=== PATIENT | female | born 1995 | race Two or more races ===

== ENCOUNTER 2019-04-08 08:59 | Emergency (ER) | payer SELFPAY ==
[2019-04-08] MEDS ORDERED: CIPROFLOXACIN HCL/DEXAMETH OTIC DROP 7.5 ML AU ONE (09:35)
--- NOTE | 2019-04-08 09:35 | ER Document Report ---
ED General - General Chief Complaint: Ear Pain Stated Complaint: EAR PAIN Time Seen by Provider: 04/08/19 09:11 Notes: Patient is a 23-year-old female who presents emergency department with a chief complaint of bilateral ear pain. Patient states that her pain started 4 days ago. Patient states that the left one hurts more than the right. Patient admits to having a fever today. States that it is hard to hear out of both ears. Denies any past medical history. TRAVEL OUTSIDE OF THE [place] IN LAST 30 DAYS: No - Related Data Allergies/Adverse Reactions: No Known Allergies Allergy (Unverified 04/08/19 09:05) Past Medical History - General Information source: Patient - Social History Smoking Status: Never Smoker Chew tobacco use (# tins/day): No Frequency of alcohol use: None Drug Abuse: None Family History: Reviewed & Not Pertinent Patient has suicidal ideation: No Patient has homicidal ideation: No Review of Systems - Review of Systems Notes: REVIEW OF SYSTEMS: CONSTITUTIONAL : See HPI. EENT: See HPI. CARDIOVASCULAR: Denies chest pain. RESPIRATORY: Denies shortness of breath, cough, congestion, difficulty breathing, or wheezing. GASTROINTESTINAL: Denies nausea, vomiting, and diarrhea. Denies abdominal pain. Denies constipation. GENITOURINARY: Denies difficulty urinating, burning, blood in urine, urgency or frequency. MUSCULOSKELETAL: Denies neck and back pain. Denies joint pain or swelling. SKIN: Denies rash, itchiness, or lesions HEMATOLOGIC : Denies easy bruising or bleeding. LYMPHATIC: Denies swollen, painful, enlarged glands. NEUROLOGICAL: Denies no numbness or tingling denies weakness. Denies headache. Denies altered mental status. Denies alteration in speech. PSYCHIATRIC: Denies stress, anxiety, alteration in sleep patterns, or depression. All other systems reviewed and negative. Physical Exam - Vital signs Vitals: Temp Pulse Resp BP Pulse Ox 99.1 F 83 16 145/84 H 98 04/08/19 09:03 04/08/19 09:03 04/08/19 09:03 04/08/19 09:03 04/08/19 09:03 - Notes Notes: PHYSICAL EXAMINATION: GENERAL: Appears well, healthy, well-nourished, no acute distress. HEAD: Normocephalic, atraumatic. EYES: PERRL, conjunctiva normal, all extraocular movements intact, sclera nonicteric ENT: Moist mucous membranes. Purulent drainage to bilateral ears. Tenderness to the left mastoid process. NECK: Supple, no noticeable swelling, redness, rash. Normal range of motion. LUNGS: Equal breath sounds bilaterally and clear to auscultation. No wheezes rales or rhonchi. CARDIOVASCULAR: S1-S2, regular rate, regular rhythm. Radial pulses 2+, normal. ABDOMEN: Normoactive bowel sounds. Soft, nontender, no guarding, no rebound tenderness, and no masses palpated. EXTREMITIES: Normal strength and range of motion, no pitting or edema. No cyanosis. NEUROLOGICAL: Moves all extremities upon command. Strength 5/5 in all extremities. PSYCH: Normal mood, normal affect. SKIN: Warm, dry. No rash, lesions, ulcerations noted. Normal skin turgor. Course - Re-evaluation Re-evalutation: 04/08/19 09:35 Patient has tenderness to her mastoid process and purulent drainage from bilateral ears. She will be started on Ciprodex drops and be sent for a CT of the facial bones to rule out mastoiditis. 04/08/19 11:17 At this time, no mastoiditis is noted on the CT. Patient has a leukocytosis of 16,900. Chemistries unremarkable. I will place her on Augmentin to cover gram- positive and gram-negative bacteria. Patient will follow-up with a primary care provider in [place] since she will be returning to [place] then. Follow-up precautions were given. Verbal discharge instructions were given to the patient. They verbalized understanding. They are stable for discharge. - Vital Signs Vital signs: Temp Pulse Resp BP Pulse Ox 98.6 F 76 16 112/58 L 98 04/08/19 11:25 04/08/19 11:25 04/08/19 11:25 04/08/19 11:25 04/08/19 11:25 - Laboratory Result Diagrams: 04/08/19 09:40 04/08/19 09:40 Laboratory results interpreted by me: 04/08/19 04/08/19 09:40 09:40 WBC 16.9 H RDW 15.1 H Lymph % (Auto) 11.6 L Absolute Neuts (auto) 13.5 H Seg Neutrophils % 80.2 H BUN 5 L Discharge - Discharge Clinical Impression: Otitis media Qualifiers: Otitis media type: unspecified Chronicity: acute Qualified Code(s): H66.90 - Otitis media, unspecified, unspecified ear Otitis externa Qualifiers: Otitis externa type: diffuse Chronicity: acute Laterality: bilateral Qualified Code(s): H60.313 - Diffuse otitis externa, bilateral Condition: Stable Disposition: HOME, SELF-CARE Instructions: Use of Ear Drops ([facility]), Otitis Externa ([facility]) Additional Instructions: You were seen today for ear pain and have an acute ear infection. Please take the antibiotic that has been prescribed until it is completed even if you are feeling better before you have finished all the antibiotics. For your pain: Take ibuprofen 600 mg and acetaminophen 1000 mg every 6 hours together as needed for pain. Return if you have worsening of your pain, loss of hearing in the affected ear, worsening facial pain, headaches, pass out, or any other symptoms that are worrisome to you. You also have an outer ear infection. You are being sent home with Ciprodex drops. Place 4 drops to both ears twice a day for 7 days. Please follow-up with a doctor when you return back to [place]. Prescriptions: Amox Tr/Potassium Clavulanate [Augmentin 875-125 Tablet] 1 tab PO BID 10 Days #20 tablet
[2019-04-08 09:59] LABS: ABSOLUTE MONOCYTES (AUTO) 1.3 10^3/uL (0.1-1.4); ABSOLUTE NEUT (AUTO) 13.5 10^3/uL (1.7-8.2); BASOPHILS % (AUTO) 0.2 % (0-2); EOSINOPHILS % (AUTO) 0.2 % (0-6); HEMATOCRIT 38.8 % (36.0-47.0); LYMPHOCYTES % (AUTO) 11.6 % (13-45); MEAN CORPUSCULAR HGB CONC 33.5 g/dL (32.0-36.0); MEAN CORPUSCULAR VOLUME 87 fl (80-97); MONOCYTES % (AUTO) 7.8 % (3-13); PLATELET COUNT 198 10^3/uL (150-450); RED BLOOD COUNT 4.49 10^6/uL (3.72-5.28); RED CELL DISTRIBUTION WIDTH 15.1 % (11.5-14.0); SEGMENTED NEUTROPHILS % (AUTO) 80.2 % (42-78); TOTAL CELLS COUNTED % (AUTO) 100 %; WHITE BLOOD COUNT 16.9 10^3/uL (4.0-10.5)
[2019-04-08 10:23] LABS: ANION GAP 13 (5-19); BLOOD UREA NITROGEN 5 mg/dL (7-20); CALCIUM 9.4 mg/dL (8.4-10.2); CARBON DIOXIDE 22 mmol/L (22-30); CHLORIDE 105 mmol/L (98-107); GLUCOSE 104 mg/dL (75-110)
[2019-04-08] MEDS ORDERED: KETOROLAC TROMETHAMINE INJ/PF 30 MG/1 ML SDV IV ONE (10:23)
--- NOTE | 2019-04-08 10:45 | RADIOLOGY REPORT (SQ) ---
EXAM DESCRIPTION: CT ORBIT/SELLA WITHOUT COMPLETED DATE/TIME: 04/08/2019 10:21 am REASON FOR STUDY: IACs; eval mastoiditis? B ear pain, mostly on left COMPARISON: None. TECHNIQUE: Noncontrasted images through the orbits windowed for bone and soft tissue. Additional co kristan and sagittal reconstructed images reviewed. All images stored on PACS. All CT scanners at this facility use dose modulation, iterative reconstruction, and/or weight based d osing when appropriate to reduce radiation dose to as low as reasonably achievable (ALARA). [facility]: Dose Right [facility]: CareDose [facility]: Dose Right [facility]: Teradose 4D [facility]: [employer] RADIATION DOSE: CT Rad equipment meets quality standard of care and radiation dose reduction techniq ues were employed. CTDIvol: 60.6 mGy. DLP: 606 mGy-cm. mGy. LIMITATIONS: None. FINDINGS: FACIAL BONES: No fracture or bone lesion. MIDDLE AND INNER EARS: Minimal mucosal thickening of the middle ears bilaterally. No fluid opacific ation. Normal bony appearance of the inner ears. EXTERNAL EARS: Soft tissue thickening of the external auditory canals bilaterally, which appear occl uded. MASTOID AIR CELLS: No significant fluid opacification of the mastoid air cells. No bony erosion or periosteal reaction to suggest mastoiditis. PARANASAL SINUSES: Clear. No significant mucosal thickening, mass or fluid. No nasal polyps. Maxilla ry sinus outlets are patent. SOFT TISSUES: No mass or edema. INFERIOR BRAIN: Limited view. No acute findings. OTHER: No other significant finding. IMPRESSION: 1. No significant fluid opacification of the mastoid air cells. No bony erosion or per iosteal reaction to suggest mastoiditis. Minimal mucosal thickening of the middle ears bilaterally w ithout fluid opacification. 2. Soft tissue thickening of the external auditory canals bilaterally, which appear occluded. Correl ate with speculum exam. TECHNICAL DOCUMENTATION: JOB ID: [id number] Quality ID # [id number]: Final reports with documentation of one or more dose reduction techniques (e.g., Au tomated exposure control, adjustment of the mA and/or kV according to patient size, use of iterative reconstruction technique) 2010 [employer]- All Rights Reserved Reading location - IP/workstation name: [email or web address]
[2019-04-08 11:31] VITALS: BP 112/58
== END 2019-04-08 11:29 | disposition home or self-care (01) ==
LOC: ER 08:59
DX: H60.313 Diffuse otitis externa, bilateral (principal); H66.90 Otitis media, unspecified, unspecified ear; H92.03 Otalgia, bilateral
CPT/HCPCS: 99283; 96374; 36415; 87040; 84703; 85025; 80048; 70480; J1885; J3490

== ENCOUNTER 2019-10-08 18:57 | Emergency (ER) | payer SELFPAY ==
--- NOTE | 2019-10-08 19:33 | ER Document Report ---
ED Extremity Problem, Lower - General Chief Complaint: Ankle Pain Stated Complaint: FALL,ANKLE PAIN Time Seen by Provider: 10/08/19 19:27 Primary Care Provider: SHIRLEY MUSTAFA JR, DO [ACTIVE PROVISIONAL STAFF] - Follow up as needed Mode of Arrival: Wheelchair Information source: Patient Notes: 24-year-old female presents to ED for complaint of pain and swelling to the left ankle. She states she was rollerblading at home about 630 when she fell twisting her ankle. Her ankle is swollen and bruised. She is alert oriented respirations regular nonlabored speaking in full sentences. TRAVEL OUTSIDE OF THE [place] IN LAST 30 DAYS: No - HPI Patient complains to provider of: Injury, Pain, Swelling Location: Ankle Occurred: Just prior to arrival - Left Where: Home, Outdoors Onset/Duration: Gradual Quality of pain: Achy, Throbbing Severity: Moderate Pain Level: 3 Context: Twisted, Wearing shoes Recent injury: Yes Associated symptoms: Painful ambulation Exacerbated by: Hanging down, Movement, Walking Relieved by: Elevation, Ice, Rest - Related Data Allergies/Adverse Reactions: No Known Allergies Allergy (Verified 10/08/19 19:18) Past Medical History - General Information source: Patient - Social History Smoking Status: Never Smoker Chew tobacco use (# tins/day): No Frequency of alcohol use: None Drug Abuse: None Family History: Reviewed & Not Pertinent Patient has homicidal ideation: No - Past Medical History Cardiac Medical History: Reports: None Pulmonary Medical History: Reports: None EENT Medical History: Reports: None Neurological Medical History: Reports: None Endocrine Medical History: Reports: None Renal/ Medical History: Reports: None Malignancy Medical History: Reports: None GI Medical History: Reports: None Musculoskeletal Medical History: Reports None Skin Medical History: Reports None Psychiatric Medical History: Reports: None Traumatic Medical History: Reports: None Infectious Medical History: Reports: None Surgical Hx: Negative Past Surgical History: Reports: None - Immunizations Immunizations up to date: Yes Review of Systems - Review of Systems Constitutional: No symptoms reported EENT: No symptoms reported Cardiovascular: No symptoms reported Respiratory: No symptoms reported Gastrointestinal: No symptoms reported Genitourinary: No symptoms reported Female Genitourinary: No symptoms reported Musculoskeletal: Ankle swelling - Left ankle pain and swelling Skin: No symptoms reported Hematologic/Lymphatic: No symptoms reported Neurological/Psychological: No symptoms reported -: Yes All other systems reviewed and negative Physical Exam - Vital signs Vitals: Temp Pulse Resp BP Pulse Ox 98.2 F 90 14 116/60 100 10/08/19 19:02 10/08/19 19:02 10/08/19 19:02 10/08/19 19:02 10/08/19 19:02 Interpretation: Normal - General General appearance: Appears well, Alert - HEENT Head: Normocephalic, Atraumatic Eyes: Normal Pupils: PERRL - Respiratory Respiratory status: No respiratory distress Chest status: Nontender Breath sounds: Normal Chest palpation: Normal - Cardiovascular Rhythm: Regular Heart sounds: Normal auscultation Murmur: No - Abdominal Inspection: Normal Distension: No distension Bowel sounds: Normal Tenderness: Nontender Organomegaly: No organomegaly - Back Back: Normal, Nontender - Extremities General upper extremity: Normal inspection, Nontender, Normal color, Normal ROM, Normal temperature General lower extremity: Normal temperature. No: Jenise's sign Hip: Normal, Nontender. No: Tender Thigh: Normal, Nontender. No: Tender Knee: Normal, Nontender. No: Tender Calf: Normal, Nontender, Other - Patient had no tenderness no swelling above the ankle no tenderness to palpation at the knee. No: Tender Ankle: Tender, Ecchymosis, Edema, Limited ROM - Very painful with any motion to the ankle, Unable to bear weight - Neurological Neuro grossly intact: Yes Cognition: Normal Orientation: AAOx4 [place] Coma Scale Eye Opening: Spontaneous [place] Coma Scale Verbal: Oriented [place] Coma Scale Motor: Obeys Commands [place] Coma Scale Total: 15 Speech: Normal Motor strength normal: LUE, RUE, LLE, RLE Sensory: Normal - Psychological Associated symptoms: Normal affect, Normal mood - Skin Skin Temperature: Warm Skin Moisture: Dry Skin Color: Normal Course - Re-evaluation Re-evalutation: 10/08/19 20:[address] Phan. He recommended a posterior short leg and stirrup splint with crutches. Patient was instructed no weightbearing due to the instability of this fracture. Patient verbalized understanding and agreement with treatment plan. Patient was given a Captiva dispense pack and took 1 Captiva while in the emergency room and then was given a prescription due to the fracture. He has been instructed to follow-up with orthopedics by telephone tomorrow to schedule follow-up. The instructions for no weightbearing will verbalized many times to ensure that she understood the did not know putting any weight on this foot. Patient did verbalize understanding and she was discharged home. - Vital Signs Vital signs: Temp Pulse Resp BP Pulse Ox 98.4 F 72 16 117/73 100 10/08/19 20:16 10/08/19 20:16 10/08/19 20:16 10/08/19 20:16 10/08/19 20:16 - Diagnostic Test Radiology reviewed: Image reviewed, Reports reviewed Procedures - Immobilization Left Ankle Time completed: 20:12 Pre-Proc Neuro Vasc Exam: Normal Immobilizer type: Ankle stirrup, Crutches - Nonweightbearing, Short Leg Posterior Performed by: PCT Post-Proc Neuro Vasc Exam: Normal Alignment checked and good: Yes Discharge - Discharge Clinical Impression: Distal fibula fracture spiral left Condition: Stable Disposition: HOME, SELF-CARE Additional Instructions: Fracture of Distal Fibula You have a fracture at the end of the fibula, the smaller bone in the lower leg. You have a spiral fracture of the distal fibula which is a unstable fracture. You will be placed in a splint and you will have to follow-up with orthopedics by telephone tomorrow to schedule a follow-up visit. They will determine whether you need surgery or what further treatment will need to be done to this fracture. Initially, the extremity should be kept elevated, with ice packs applied frequently. You are not allowed to bear any weight on this foot until you have seen orthopedics and they tell you what to do. This foot needs to stay elevated. Healing of this fracture takes about four to eight weeks. Younger patients heal more quickly. An X-ray is usually required during healing to check for complications and to assess healing. Call the doctor or return at once if there is severe swelling, increasing pain, or numbness in the foot. Splint Pending Casting Your injury can't be casted until the swelling has subsided. Therefore, a temporary splint has been placed to protect the injury. Full use of an injured area is not possible in a splint. You should follow the doctor's instructions concerning rest, ice, and elevation of the injury. Never do anything which causes pain under the splint. Keep the splint on ALL THE TIME until you return for casting. If there is unexpected severe pain, or numbness, discoloration, or swelling beyond the splint, you should return at once. USE OF CRUTCHES: The doctor has recommended that you not bear weight at this time. You will need to use crutches. Adjust the crutches so the tops come to about two inches under the armpit while you are standing upright. Use your hands -- not your armpits -- to support your weight. To get into a chair, support yourself with one crutch on the injured side. Hold the chair with the other hand, then lower yourself while putting all your weight on the good leg. Going up stairs is `good leg up, step up, then bring up crutches and bad leg.' Down stairs is `bad leg and crutches down, then bring good leg down.' If you develop numbness or swelling in an arm or hand, you are using the crutches incorrectly. Return if you are having any problems with the crutches. ICE & ELEVATION: Apply ice packs frequently against the painful area. Many different schedules are recommended, such as "20 minutes on, 20 minutes off" or "one hour ice, two hours rest." If you need to work, you may need to go longer between ice treatments. You should plan to have the area ice packed AT LEAST one-fourth of the time. The ice should be applied over the wrap, tape, or splint, or over a layer of cloth -- not directly against the skin. Some ice bags have a built-in cloth and can be put directly on the skin. Your injured part should be elevated as much as possible over the next 48 hours. Try to keep the injury above the level of the heart. Avoid use of the injured area. Elevation and rest will decrease the swelling. USE OF [id number] IBUPROFEN: Ibuprofen (Advil, Nuprin, Medipren, Motrin IB) is a medication for fever and pain control. In addition, it has anti- inflammatory effects which may be beneficial, especially in the treatment of injuries. It's best to take ibuprofen with food. Persons with ulcer disease or allergy to aspirin should notify their physician of this before taking ibuprofen. Ibuprofen can be given every four to six hours, for a total of four doses daily. Age Pain or fever dose Antiinflammatory dose 6-8 yr 200 mg (1 tab) 200 mg (1 tab) 9-11 yr 200 mg (1 tab) 200-400 mg (1-2 tab) 11-14 yr 200-400 mg (1-2 tab) 400 mg (2 tab) 15-adult 400 mg (2 tab) 600 mg (3 tab) ORAL NARCOTIC MEDICATION: You have been given a prescription for pain control. This medication is a narcotic. It's best taken with food, as nausea can result if taken on an empty stomach. Don't operate machinery or drive within six hours of taking this medication. Do not combine this medicine with alcohol, or with any medication which can cause sedation (such as cold tablets or sleeping pills) unless you get permission from the physician. Narcotics tend to cause constipation. If possible, drink plenty of fluids and eat a diet high in fiber and fruits. Please be aware that prescription narcotics also have the potential for abuse. People become addicted to these medications because of the general sense of wellbeing that they induce. This feeling along with a significant reduction in tension, anxiety, and aggression provides a stimulating seductive quality to these drugs. Once your pain is under control, we encourage you to discard your unused narcotics. FOLLOW-UP CARE: If you have been referred to a physician for follow-up care, call the physicians office for an appointment as you were instructed or within the next two days. If you experience worsening or a significant change in your symptoms, notify the physician immediately or return to the Emergency Department at any time for re-evaluation. Prescriptions: Hydrocodone/Acetaminophen [Captiva 5-325 mg Tablet] 1 tab PO Q6HP PRN #10 tablet PRN Reason: Referrals: SHIRLEY MUSTAFA JR, DO [ACTIVE PROVISIONAL STAFF] - Follow up as needed
[2019-10-08] MEDS ORDERED: HYDROCODONE/ACETAMINOPHEN 5-325 MG (6 TAB/ER DISP) PO PRN (19:41)
[2019-10-08 20:25] VITALS: BP 117/73
--- NOTE | 2019-10-08 20:29 | RADIOLOGY REPORT (SQ) ---
EXAM DESCRIPTION: XR ANKLE 3 OR MORE VIEWS COMPLETED DATE/TME: 10/08/2019 19:27 CLINICAL HISTORY: 24 years Female ,Pain injury swelling left ankle COMPARISON: None. TECHNIQUE: Left ankle, 3 view FINDINGS: Soft tissue swelling around the ankle. There is an obliquely oriented mildly displaced fracture of the distal fibula. There appears to be some widening of the ankle mortise medially suggesting ligamentous injury. Soft tissue swelling and small joint effusion. IMPRESSION: Obliquely oriented and mildly displaced fracture of the distal fibula with associated soft tissue swelling Widening of the medial aspect of the ankle mortise suggesting ligamentous injury
== END 2019-10-08 20:20 | disposition home or self-care (01) ==
LOC: ER 18:57
DX: S82.832A Other fracture of upper and lower end of left fibula, initial encounter for closed fracture (principal); M25.572 Pain in left ankle and joints of left foot; M25.472 Effusion, left ankle; V00.121A Fall from non-in-line roller-skates, initial encounter; Y93.51 Activity, roller skating (inline) and skateboarding; Y92.009 Unspecified place in unspecified non-institutional (private) residence as the place of occurrence of the external cause
CPT/HCPCS: 99283

== ENCOUNTER 2019-10-14 10:51 | Day surgery (SDC) | payer SELFPAY ==
[2019-10-13 09:54] LABS: ABSOLUTE EOSINOPHILS # (AUTO) 0.1 10^3/uL (0.0-0.6); ABSOLUTE LYMPHOCYTES (AUTO) 2.5 10^3/uL (0.5-4.7); ABSOLUTE MONOCYTES (AUTO) 0.4 10^3/uL (0.1-1.4); BASOPHILS % (AUTO) 0.6 % (0-2); EOSINOPHILS % (AUTO) 1.5 % (0-6); HEMATOCRIT 36.3 % (36.0-47.0); HEMOGLOBIN 12.4 g/dL (12.0-15.5); LYMPHOCYTES % (AUTO) 30.7 % (13-45); MEAN CORPUSCULAR HEMOGLOBIN 29.8 pg (27.0-33.4); MEAN CORPUSCULAR HGB CONC 34.3 g/dL (32.0-36.0); MEAN CORPUSCULAR VOLUME 87 fl (80-97); MONOCYTES % (AUTO) 5.6 % (3-13); PLATELET COUNT 212 10^3/uL (150-450); RED BLOOD COUNT 4.17 10^6/uL (3.72-5.28); SEGMENTED NEUTROPHILS % (AUTO) 61.6 % (42-78); TOTAL CELLS COUNTED % (AUTO) 100 %; WHITE BLOOD COUNT 8.1 10^3/uL (4.0-10.5)
[~2019-10-14 10:51] MED LIST: CEFAZOLIN SODIUM 2 GM in DEXTROSE 5%-WATER 100 ML IV PRN; LACTATED RINGERS 1000 ML IV PRN
[2019-10-14] MEDS ORDERED: ACETAMINOPHEN 325 MG TABLET ONE (12:18)
[2019-10-14] MEDS ORDERED: OXYCODONE HCL SR 10 MG TABLET PO ONE (12:19)
[2019-10-14] MEDS ORDERED: FENTANYL CITRATE INJ/PF 100 MCG/2 ML AMPUL ONE ×2 (12:48→13:57)
[2019-10-14] MEDS ORDERED: MIDAZOLAM 2 MG/2 ML INJ ONE ×2 (12:48→13:57)
[2019-10-14] MEDS ORDERED: MIDAZOLAM 2 MG/2 ML INJ IV ONE (13:45)
[2019-10-14] MEDS ORDERED: FENTANYL CITRATE INJ/PF 100 MCG/2 ML AMPUL IV ONE (13:45)
[2019-10-14] MEDS ORDERED: ONDANSETRON HCL INJ/PF 4 MG/2 ML SDV ONE ×2 (13:57→17:07)
[2019-10-14] MEDS ORDERED: DEXAMETHASONE SOD PHOSPHATE INJ 4 MG/1 ML VIAL ONE (13:57)
[2019-10-14] MEDS ORDERED: LIDOCAINE 2% INJ-PF (20 MG/ML) 10 ML AMPUL ONE (13:57)
[2019-10-14] MEDS ORDERED: PROPOFOL INJ 200 MG/20 ML VIAL IV ONE (13:58)
[2019-10-14] MEDS ORDERED: LIDOCAINE 1% INJ-PF (10 MG/ML) 30 ML SDV ONE (14:02)
[2019-10-14] MEDS ORDERED: BUPIVACAINE HCL 0.5 % INJ/PF 30 ML SDV ONE (14:02)
[2019-10-14] MEDS ORDERED: MEPERIDINE HCL/PF INJ 25 MG/1 ML DISP.SYRIN IV PRN (14:43)
[2019-10-14] MEDS ORDERED: OXYCODONE-ACETAMINOPHEN 5-325 MG TABLET PO PRN ×2 (14:43)
[2019-10-14] MEDS ORDERED: FENTANYL CITRATE INJ/PF 100 MCG/2 ML AMPUL IV PRN ×3 (14:43)
[2019-10-14] MEDS ORDERED: DIPHENHYDRAMINE HCL 50 MG/ML VIAL IV PRN (14:43)
[2019-10-14] MEDS ORDERED: ONDANSETRON HCL INJ/PF 4 MG/2 ML SDV IV PRN (14:43)
[2019-10-14] MEDS ORDERED: PROMETHAZINE HCL INJ 25 MG/1 ML VIAL IV PRN ×2 (14:43)
[2019-10-14] MEDS ORDERED: EPHEDRINE SULFATE INJ 50 MG/1 ML AMPULE ONE (14:59)
--- NOTE | 2019-10-14 16:12 | Operative Report ---
Operative Report DATE OF SURGERY: 10/14/19 PREOPERATIVE DIAGNOSIS: Left bimalleolar equivalent ankle fracture. POSTOPERATIVE DIAGNOSIS: Left bimalleolar equivalent ankle fracture with syndesmotic injury. OPERATION: Left ankle open reduction internal fixation with syndesmotic fixation SURGEON: SHIRLEY MUSTAFA JR ANESTHESIA: Spinal COMPLICATIONS: None ESTIMATED BLOOD LOSS: 15 cc PROCEDURE: My ankle fracture they were brought to the operating suite and placed under spinal anesthesia. The splint was removed and skin was confirmed to be intact and was healthy for operative treatment. They were prepped and draped in standard sterile fashion. They were provided with 2 g of Ancef pre-operatively. After an appropriate timeout the limb was exsanguinated with Esmarch and tourniquet was inflated followed by incision to the lateral malleolus. Careful dissection was performed until the fracture was exposed. Due to the findings of long oblique fibula fracture technique performed was lag screw fixation with neutralization plate. We were able to place 2 lag screws across the fracture site and achieve a anatomic keyed in reduction. This was all performed with the assistance of fluoroscopy. After excellent reduction and plate application all screws were tightened appropriately. Following this, an external rotation stress test was performed and found the syndesmosis to be injured with increased syndesmotic clear space as well as medial widening. Due to this we placed 1 syndesmotic screws. Final fluoroscopy was then taken. The wounds were copiously irrigated with sterile saline solution. 0 Vicryl was utilized to draw the deep fascia over the lateral plate. Following this 3-0 Monocryl was utilized for the subcutaneous layer followed by a running 3-0 nylon in the skin. Xeroform was placed over the wounds followed by 4 x 4's soft roll plaster posterior U type splint and Jonnathan wrap. The patient tolerated the procedure well and was transferred to the PACU in stable condition.
--- NOTE | 2019-10-14 16:16 | RADIOLOGY REPORT (SQ) ---
EXAM DESCRIPTION: ANKLE LEFT COMPLETE; NO CHG FLUORO IMAGES COMPLETED DATE/TIME: 10/14/2019 4:01 pm REASON FOR STUDY: ORIF LT ANKLE S82.842A DISPLACED BIMALLEOLAR FRACTURE OF LEFT LOWER LEG, I COMPARISON: AP, lateral, oblique views of the left ankle from 10/08/2019. FLUOROSCOPY TIME: 0.6 minutes. 6 images submitted to PACS. TECHNIQUE: Fluoroscopic guidance was used intraoperatively during an open reduction internal fixatio n of an obliquely oriented and mildly displaced fracture of the distal fibula. LIMITATIONS: None. FINDINGS: The fracture has been transfixed with placement of a dynamic compression plate, several co rtical screws and a single syndesmotic screw. IMPRESSION: IMAGE(S) OBTAINED DURING PROCEDURE. COMMENT: Quality ID [id number]: Final reports for procedures using fluoroscopy that document radiation exp osure indices, or exposure time and number of fluorographic images (if radiation exposure indices are not available) Please consult full operative report of the attending physician for description of the procedure. TECHNICAL DOCUMENTATION: JOB ID: [id number] 2010 [employer]- All Rights Reserved Reading location - IP/workstation name: [email or web address]
--- NOTE | 2019-10-14 16:16 | RADIOLOGY REPORT (SQ) ---
EXAM DESCRIPTION: ANKLE LEFT COMPLETE; NO CHG FLUORO IMAGES COMPLETED DATE/TIME: 10/14/2019 4:01 pm REASON FOR STUDY: ORIF LT ANKLE S82.842A DISPLACED BIMALLEOLAR FRACTURE OF LEFT LOWER LEG, I COMPARISON: AP, lateral, oblique views of the left ankle from 10/08/2019. FLUOROSCOPY TIME: 0.6 minutes. 6 images submitted to PACS. TECHNIQUE: Fluoroscopic guidance was used intraoperatively during an open reduction internal fixatio n of an obliquely oriented and mildly displaced fracture of the distal fibula. LIMITATIONS: None. FINDINGS: The fracture has been transfixed with placement of a dynamic compression plate, several co rtical screws and a single syndesmotic screw. IMPRESSION: IMAGE(S) OBTAINED DURING PROCEDURE. COMMENT: Quality ID [id number]: Final reports for procedures using fluoroscopy that document radiation exp osure indices, or exposure time and number of fluorographic images (if radiation exposure indices are not available) Please consult full operative report of the attending physician for description of the procedure. TECHNICAL DOCUMENTATION: JOB ID: [id number] 2010 [employer]- All Rights Reserved Reading location - IP/workstation name: [email or web address]
[2019-10-14 18:05] VITALS: BP 139/80
== END 2019-10-14 17:37 | disposition home or self-care (01) ==
LOC: OROUT 10:51
PROVIDERS: ATTEND Orthopaedic Surgery
DX: S82.842A Displaced bimalleolar fracture of left lower leg, initial encounter for closed fracture (principal); X58.XXXA Exposure to other specified factors, initial encounter
CPT/HCPCS: 27814; 36415; 85025; 81025; 73610; C1713 ×8; J2250; J3490 ×3; J0690; J1100; J3010; J2405; J7060; J2704; 01480

== ENCOUNTER 2019-10-14 20:58 | Emergency (ER) | payer SELFPAY ==
--- NOTE | 2019-10-14 21:24 | ER Document Report ---
ED Medical Screen (RME) - General Chief Complaint: Urinary Problem Stated Complaint: URINARY COMPLAINTS Time Seen by Provider: 10/14/19 21:21 Mode of Arrival: Wheelchair Information source: Patient Notes: 24-year-old female presents emergency department with complaints that she is unable to void. Reports she had surgery today by Dr. Valentino on her ankle. She reports she did not void prior to being discharged from the PACU. Patient reports she was instructed to return in 6 hours if she has not voided. She reports that has not been 6 hours but she is really uncomfortable and still unable to void. She denies other symptoms such as fever vomiting diarrhea. I have greeted and performed a rapid initial assessment of this patient. A comprehensive ED assessment and evaluation of the patient, analysis of test results and completion of the medical decision making process will be conducted by additional ED providers. TRAVEL OUTSIDE OF THE [place] IN LAST 30 DAYS: No - Related Data Allergies/Adverse Reactions: No Known Allergies Allergy (Verified 10/14/19 11:01) Past Medical History - Past Medical History Cardiac Medical History: Denies: Hx Coronary Artery Disease, Hx Heart Attack, Hx Hypertension Pulmonary Medical History: Denies: Hx Asthma, Hx Bronchitis, Hx COPD, Hx Pneumonia Neurological Medical History: Denies: Hx Cerebrovascular Accident, Hx Seizures Musculoskeltal Medical History: Denies Hx Arthritis - Immunizations Immunizations up to date: Yes Hx Diphtheria, Pertussis, Tetanus Vaccination: Yes Physical Exam - Vital signs Vitals: Temp Pulse Resp BP Pulse Ox 98.0 F 93 18 143/78 H 98 10/14/19 21:02 10/14/19 21:02 10/14/19 21:02 10/14/19 21:02 10/14/19 21:02 Course - Vital Signs Vital signs: Temp Pulse Resp BP Pulse Ox 98.0 F 93 18 143/78 H 98 10/14/19 21:02 10/14/19 21:02 10/14/19 21:02 10/14/19 21:02 10/14/19 21:02
[2019-10-14 22:21] LABS: APPEARANCE,URINE CLEAR; BILIRUBIN,URINE NEGATIVE (NEGATIVE); COLOR,URINE YELLOW; GLUCOSE, URINE NEGATIVE (NEGATIVE); KETONES,URINE NEGATIVE (NEGATIVE); LEUKOCYTE ESTERASE,URINE NEGATIVE (NEGATIVE); NITRITE,URINE NEGATIVE (NEGATIVE); PROTEIN,URINE NEGATIVE (NEGATIVE); URINE SPECIFIC GRAVITY 1.015; UROBILINOGEN,URINE NEGATIVE mg/dL (<2.0)
--- NOTE | 2019-10-14 22:27 | ER Document Report ---
HPI - HPI Patient complains to provider of: unable to void Time Seen by Provider: 10/14/19 21:21 Onset: This evening Onset/Duration: Sudden Quality of pain: Pressure Pain Level: 4 Context: 24-year-old female presents emergency department with complaints that she is unable to void. Patient reports she broke her ankle while rollerblading last week. Reports she had surgery on her left ankle this afternoon Dr. Valentino and has not voided since then. She reports she was discharged without voiding. She was instructed to return to the emergency department if she is unable to void within 6 hours post discharge. She reports that would have been midnight. She reports she began feeling very uncomfortable so she came to the emergency department. She denies fever vomiting diarrhea. Associated Symptoms: None Exacerbated by: Denies Relieved by: Denies Similar symptoms previously: No Recently seen / treated by doctor: Yes - REPRODUCTIVE Reproductive: DENIES: : Past Medical History - General Information source: Patient Last Menstrual Period: 09/19/2019 - Social History Smoking Status: Never Smoker Chew tobacco use (# tins/day): No Frequency of alcohol use: None Drug Abuse: None Family History: Reviewed & Not Pertinent Patient has suicidal ideation: No Patient has homicidal ideation: No - Past Medical History Cardiac Medical History: Denies: Hx Coronary Artery Disease, Hx Heart Attack, Hx Hypertension Pulmonary Medical History: Denies: Hx Asthma, Hx Bronchitis, Hx COPD, Hx Pneumonia Neurological Medical History: Denies: Hx Cerebrovascular Accident, Hx Seizures Musculoskeletal Medical History: Denies Hx Arthritis Traumatic Medical History: Reports: Hx Fractures Past Surgical History: Reports: Hx Orthopedic Surgery - Immunizations Immunizations up to date: Yes Hx Diphtheria, Pertussis, Tetanus Vaccination: Yes Vertical Provider Document - CONSTITUTIONAL Agree With Documented VS: Yes Exam Limitations: No Limitations General Appearance: WD/WN, No Apparent Distress - INFECTION CONTROL TRAVEL OUTSIDE OF THE [place] IN LAST 30 DAYS: No - HEENT HEENT: Atraumatic, Normocephalic - NECK Neck: Supple - RESPIRATORY Respiratory: No Respiratory Distress - CARDIOVASCULAR Cardiovascular: Regular Rate - GI/ABDOMEN Gastrointestinal: Abdomen Soft - MUSCULOSKELETAL/EXTREMETIES Musculoskeletal/Extremeties: MAEW, FROM, Tender - left lower leg in splint - NEURO Level of Consciousness: Awake, Alert, Appropriate - DERM Integumentary: Warm, Dry Course - Re-evaluation Re-evalutation: 10/14/19 22:25 Straight cath was completed. Patient reports she feels much better after that. She was given p.o. fluids and instructed that she needed to void before she could be discharged. 10/14/19 23:33 UA unremarkable, after p.o. challenge patient was able to void. She was instructed on the importance of pushing fluids follow-up with primary care return to the ED for any concerns. She verbalized understanding to all instructions. Laboratory 10/14/19 21:59 Urine Color YELLOW Urine Appearance CLEAR Urine pH 7.0 Ur Specific [place] 1.015 Urine Protein NEGATIVE Urine Glucose (UA) NEGATIVE Urine Ketones NEGATIVE Urine Blood NEGATIVE Urine Nitrite NEGATIVE Urine Bilirubin NEGATIVE Urine Urobilinogen NEGATIVE Ur Leukocyte Esterase NEGATIVE Urine WBC (Auto) 1 Urine RBC (Auto) 1 U Hyaline Cast (Auto) 1 Squamous Epi Cells Auto 1 Urine Mucus (Auto) OCC Urine Ascorbic Acid NEGATIVE - Vital Signs Vital signs: Temp Pulse Resp BP Pulse Ox 98.0 F 93 18 143/78 H 98 10/14/19 21:21 10/14/19 21:02 10/14/19 21:02 10/14/19 21:02 10/14/19 21:02 Discharge - Discharge Clinical Impression: Postoperative urinary retention Condition: Stable Disposition: HOME, SELF-CARE Instructions: Urinary Retention ([facility]) Additional Instructions: *You have been evaluated for urinary retention *Follow up with Dr. Valentino as scheduled *Return to the emergency department if unable to void, concerns, needs Monitor your blood pressure. Your blood pressure was elevated today. This may be because you were anxious, in pain or because you need medication. It is important to follow up with your primary care provider for full evaluation. Forms: Elevated Blood Pressure
[2019-10-14 23:45] VITALS: BP 119/60
== END 2019-10-14 23:40 | disposition home or self-care (01) ==
LOC: ER 20:58
DX: R33.8 Other retention of urine (principal); Z98.890 Other specified postprocedural states
CPT/HCPCS: 51701; 81001; 99283

== ENCOUNTER 2020-05-14 15:35 | Emergency (ER) | payer SELFPAY ==
--- NOTE | 2020-05-14 15:57 | ER Document Report ---
ED Medical Screen (RME) - General Chief Complaint: Epigastric Pain Stated Complaint: EPIGASTRIC PAIN Time Seen by Provider: 05/14/20 15:54 Mode of Arrival: Ambulatory Information source: Patient Notes: 24-year-old female presents to ED for complaint of upper abdominal pain. She states she has a history of reflux but this is lasting longer and more painful than normal reflux. She states she is taking [id number] medications and does not seem to be getting any better. She denies any fevers. Denies any nausea or vomiting. She is alert oriented respirations regular nonlabored speak ing in full sentences. We will get blood and urine and get an upper abdominal ultrasound and she will be seen by another provider. I have greeted and performed a rapid initial assessment of this patient. A comprehensive ED assessment and evaluation of the patient, analysis of test results and completion of medical decision making process will be conducted by an additional ED providers. TRAVEL OUTSIDE OF THE [place] IN LAST 30 DAYS: No - Related Data Allergies/Adverse Reactions: No Known Allergies Allergy (Verified 10/14/19 11:01) Past Medical History - Past Medical History Cardiac Medical History: Denies: Hx Coronary Artery Disease, Hx Heart Attack, Hx Hypertension Pulmonary Medical History: Denies: Hx Asthma, Hx Bronchitis, Hx COPD, Hx Pneumonia Neurological Medical History: Denies: Hx Cerebrovascular Accident, Hx Seizures Musculoskeltal Medical History: Denies Hx Arthritis Traumatic Medical History: Reports: Hx Fractures Past Surgical History: Reports: Hx Orthopedic Surgery - Immunizations Immunizations up to date: Yes Hx Diphtheria, Pertussis, Tetanus Vaccination: Yes Physical Exam - Vital signs Vitals: Temp Pulse Resp BP Pulse Ox 98.4 F 89 16 138/88 H 98 05/14/20 15:44 05/14/20 15:44 05/14/20 15:44 05/14/20 15:44 05/14/20 15:44 Course - Vital Signs Vital signs: Temp Pulse Resp BP Pulse Ox 98.4 F 89 16 138/88 H 98 05/14/20 15:44 05/14/20 15:44 05/14/20 15:44 05/14/20 15:44 05/14/20 15:44
--- NOTE | 2020-05-14 17:07 | RADIOLOGY REPORT (SQ) ---
EXAM DESCRIPTION: U/S ABDOMEN LIMITED W/O DOP IMAGES COMPLETED DATE/TIME: 05/14/2020 1:53 pm REASON FOR STUDY: Upper abdominal pain COMPARISON: None. TECHNIQUE: Dynamic and static grayscale images acquired of the abdomen and recorded on PACS. Additio nal selected color Doppler and spectral images recorded. LIMITATIONS: Pancreatic tail is poorly visualized due to overlying structures. Portions of the hepa tic parenchyma are also poorly penetrated. FINDINGS: PANCREAS: Visualized portions are unremarkable. LIVER: Visualized portions appear normal. Portions of the hepatic parenchyma are poorly penetrated. No discrete liver lesion identified. LIVER VASCULATURE: Normal directional flow of the main portal vein and hepatic veins. GALLBLADDER: The gallbladder appears to be filled with stones with diffuse posterior acoustic shadowi ng. No significant wall thickening. ULTRASOUND-DETECTED BYRD'S SIGN: Negative. INTRAHEPATIC DUCTS AND COMMON DUCT: Common duct is at the upper limits of normal. No intrahepatic bi liary dilatation. INFERIOR VENA CAVA: Visualized portions are unremarkable. AORTA: No aneurysm. RIGHT KIDNEY: Normal size. Normal echogenicity. No solid or suspicious masses. No hydronephrosis. No calcifications. PERITONEAL AND RIGHT PLEURAL SPACE: No ascites or effusions. OTHER: No other significant findings. IMPRESSION: Stone filled gallbladder without significant wall thickening or adjacent fluid collectio ns. TECHNICAL DOCUMENTATION: JOB ID: [id number] 2010 [employer]- All Rights Reserved Reading location - IP/workstation name: [email or web address]
[2020-05-14 17:09] LABS: ABSOLUTE EOSINOPHILS # (AUTO) 0.1 10^3/uL (0.0-0.6); ABSOLUTE LYMPHOCYTES (AUTO) 2.3 10^3/uL (0.5-4.7); ABSOLUTE MONOCYTES (AUTO) 0.6 10^3/uL (0.1-1.4); ABSOLUTE NEUT (AUTO) 7.6 10^3/uL (1.7-8.2); BASOPHILS % (AUTO) 0.2 % (0-2); EOSINOPHILS % (AUTO) 0.7 % (0-6); HEMATOCRIT 40.2 % (36.0-47.0); HEMOGLOBIN 13.2 g/dL (12.0-15.5); LYMPHOCYTES % (AUTO) 21.5 % (13-45); MEAN CORPUSCULAR HEMOGLOBIN 29.3 pg (27.0-33.4); MEAN CORPUSCULAR HGB CONC 32.8 g/dL (32.0-36.0); MEAN CORPUSCULAR VOLUME 89 fl (80-97); MONOCYTES % (AUTO) 5.5 % (3-13); PLATELET COUNT 201 10^3/uL (150-450); RED CELL DISTRIBUTION WIDTH 14.5 % (11.5-14.0); SEGMENTED NEUTROPHILS % (AUTO) 72.1 % (42-78); TOTAL CELLS COUNTED % (AUTO) 100 %; WHITE BLOOD COUNT 10.5 10^3/uL (4.0-10.5)
[2020-05-14 17:32] LABS: ALBUMIN 4.3 g/dL (3.5-5.0); ALKALINE PHOSPHATASE 110 U/L (38-126); ANION GAP 8 (5-19); ASPARTATE AMINO TRANSFERASE 26 U/L (14-36); BILIRUBIN,DIRECT 0.1 mg/dL (0.0-0.4); BILIRUBIN,TOTAL 0.3 mg/dL (0.2-1.3); BLOOD UREA NITROGEN 15 mg/dL (7-20); CALCIUM 9.3 mg/dL (8.4-10.2); CARBON DIOXIDE 26 mmol/L (22-30); CHLORIDE 108 mmol/L (98-107); GLUCOSE 111 mg/dL (75-110); POTASSIUM 4.2 mmol/L (3.6-5.0); TOTAL PROTEIN 7.6 g/dL (6.3-8.2)
[2020-05-14 18:09] LABS: APPEARANCE,URINE SLIGHTLY-CLOUDY; BILIRUBIN,URINE NEGATIVE (NEGATIVE); COLOR,URINE YELLOW; GLUCOSE, URINE NEGATIVE (NEGATIVE); KETONES,URINE NEGATIVE (NEGATIVE); LEUKOCYTE ESTERASE,URINE NEGATIVE (NEGATIVE); NITRITE,URINE POSITIVE (NEGATIVE); PROTEIN,URINE NEGATIVE (NEGATIVE); URINE SPECIFIC GRAVITY 1.021; UROBILINOGEN,URINE NEGATIVE mg/dL (<2.0)
[2020-05-14] MEDS ORDERED: LIDOCAINE 2% VISCOUS SOLN 15 ML UDCUP PO ONE (18:33)
[2020-05-14] MEDS ORDERED: METOCLOPRAMIDE HCL ORAL SOLN 10 MG/10 ML UDCUP PO ONE (18:33)
[2020-05-14] MEDS ORDERED: MAG HYDROX/AL HYDROX/SIMETH SUSP 30 ML UDCUP PO ONE (18:33)
--- NOTE | 2020-05-14 18:35 | ER Document Report ---
ED GI/ - General Chief Complaint: Epigastric Pain Stated Complaint: EPIGASTRIC PAIN Time Seen by Provider: 05/14/20 15:54 Mode of Arrival: Ambulatory Notes: HPI: 24-year-old female with intermittent epigastric discomfort for around a year. She does believe it associated with some food. She does state radiation up to her sternal region. She denies any lower abdominal pain, dysuria, or flank pain. No missed menstrual periods. No other aggravating or relieving factors otherwise. No cough or shortness of breath. ROS: See HPI All other review of systems reviewed and otherwise negative Reviewed vital signs and nursing note as charted by RN. PHYSICAL EXAM: CONSTITUTIONAL: Alert and oriented and responds appropriately to questions. Well-appearing; well-nourished HEAD: Normocephalic; atraumatic EYES: Sclerae non-icteric ENT: Normal nose; no rhinorrhea; moist mucous membranes; pharynx without lesions noted NECK: Supple without meningismus; non-tender; no cervical lymphadenopathy, no masses CARD: Regular rate and rhythm; no murmurs; symmetric distal pulses RESP: Normal chest excursion without splinting or tachypnea; breath sounds clear and equal bilaterally ABD/GI: Normal bowel sounds; non-distended; soft, minimal tenderness to the epigastric region. No distinct right upper quadrant tenderness BACK: The back appears normal and is non-tender to palpation EXT: Normal ROM in all joints; non-tender to palpation; no edema SKIN: No acute lesions noted NEURO: CN 2-12 intact; 5/5 bilateral upper and lower extremity strength with sensation intact to light touch PSYCH: The patient's mood and manner are appropriate. Grooming and personal hygiene are appropriate. TRAVEL OUTSIDE OF THE [place] IN LAST 30 DAYS: No - Related Data Allergies/Adverse Reactions: No Known Allergies Allergy (Verified 10/14/19 11:01) Past Medical History - General Information source: Patient - Social History Smoking Status: Never Smoker Frequency of alcohol use: None Drug Abuse: None Family History: Reviewed & Not Pertinent - Past Medical History Cardiac Medical History: Denies: Hx Coronary Artery Disease, Hx Heart Attack, Hx Hypertension Pulmonary Medical History: Denies: Hx Asthma, Hx Bronchitis, Hx COPD, Hx Pneumonia Neurological Medical History: Denies: Hx Cerebrovascular Accident, Hx Seizures Musculoskeletal Medical History: Denies Hx Arthritis Traumatic Medical History: Reports: Hx Fractures Past Surgical History: Reports: Hx Orthopedic Surgery - Immunizations Immunizations up to date: Yes Hx Diphtheria, Pertussis, Tetanus Vaccination: Yes Physical Exam - Vital signs Vitals: Temp Pulse Resp BP Pulse Ox 98.4 F 89 16 138/88 H 98 05/14/20 15:44 05/14/20 15:44 05/14/20 15:44 05/14/20 15:44 05/14/20 15:44 Course - Re-evaluation Re-evalutation: Given the history and physical examination, we will obtain basic labs, liver panel, lipase, urine analysis and test, right upper quadrant ultrasound, and an EKG. I would like to evaluate for pancreatitis, transaminitis, gallbladder pathology, or EKG irregularity. Patient denies any upper anterior chest pain, cough, shortness of breath. I believe ACS, PE, dissection, pneumonia to be extremely unlikely. 05/14/20 18:34 Labs as recorded. Normal liver panel and lipase. No leukocytosis. Gallstones without wall thickening. EKG shows heart of 86, normal sinus rhythm, normal axis, no ST elevation or depression. 05/14/20 19:00 Ultrasound as recorded. No signs of infection. Patient's pain is controlled. I have a long discussion with the patient and the general surgeon. They both be lieve outpatient therapy would be beneficial. Patient understands the food to avoid as well as strict return precautions. - Vital Signs Vital signs: Temp Pulse Resp BP Pulse Ox 98.4 F 89 16 138/88 H 98 05/14/20 15:44 05/14/20 15:44 05/14/20 15:44 05/14/20 15:44 05/14/20 15:44 - Laboratory Result Diagrams: 05/14/20 16:27 05/14/20 16:27 Laboratory results interpreted by me: 05/14/20 05/14/20 05/14/20 16:27 16:27 16:30 RDW 14.5 H Chloride 108 H Glucose 111 H Urine Blood LARGE H Urine Nitrite POSITIVE H Discharge - Discharge Clinical Impression: Symptomatic cholelithiasis Condition: Good Disposition: HOME, SELF-CARE Additional Instructions: Come back immediately with any increased pain, fevers, vomiting, or any other acute problems. Please stay away from fatty foods. Please make sure that you follow-up as we have discussed regarding gallbladder removal. Referrals: ARTUR LOERA MD [ACTIVE STAFF] - Follow up as needed
[2020-05-14 19:21] VITALS: BP 121/76
--- NOTE | 2020-05-15 07:25 | EKG REPORT ---
SEVERITY:- NORMAL ECG - SINUS RHYTHM : Confirmed by: Jarrod Blair MD 15-May-2020 07:24:58
== END 2020-05-14 19:22 | disposition home or self-care (01) ==
LOC: ER 15:35
DX: K80.20 Calculus of gallbladder without cholecystitis without obstruction (principal); R10.13 Epigastric pain; R10.816 Epigastric abdominal tenderness
CPT/HCPCS: 93005; 99285; 36415; 87086; 83690; 84703; 85025; 87088; 80053; 81001; 87186; 76705; 93010; J3490